=== PATIENT | male | born 1970 | race Caucasian/White ===

== ENCOUNTER 2017-02-26 15:32 | Emergency (ER) | payer OTHER ==
[~2017-02-26] VITALS: Ht 170.2 cm; Wt 60.0 kg
[~2017-02-26 15:32] MED LIST: BACTRIM DS1 TAB OR; DOXYCYC MONO100 M1 OR; LORTAB 10 OR; NAPROSYN500 MG OR; NO MEDS
[2017-02-26] MEDS ORDERED: NAPROSYN500 MG PO (19:36)
[2017-02-26 19:43] VITALS: BP 130/80
== END 2017-02-26 19:35 | disposition home or self-care (01) | DRG 552 ==
LOC: ED 15:32
DX: S16.1XXA Strain of muscle, fascia and tendon at neck level, initial encounter (principal); S53.402A Unspecified sprain of left elbow, initial encounter; S13.4XXA Sprain of ligaments of cervical spine, initial encounter; V59.59XA Passenger in pick-up truck or van injured in collision with other motor vehicles in traffic accident, initial encounter; Y92.411 Interstate highway as the place of occurrence of the external cause; Y93.I9 Activity, other involving external motion